=== PATIENT | male | born 1990 | race African-American/Black ===

== ENCOUNTER 2022-05-26 17:12 | Emergency (ER) | payer SELFPAY ==
[~2022-05-26] VITALS: Ht 177.8 cm; Wt 88.5 kg
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
[2022-05-26] MEDS ORDERED: NAPR-1009 PO (18:21)
[2022-05-26] MEDS ORDERED: KETOROLAC TROMETHAMINE INJ 30 MG/ML VIAL ONE (18:22)
[2022-05-26] MEDS ORDERED: TDAP [DIPH/PERTUSSIS/TET] 0.5 ML VIAL IM ONE (18:22)
[2022-05-26] MEDS: TDAP [DIPH/PERTUSSIS/TET] 0.5 ML VIAL IM ONE (18:30)
[2022-05-26] MEDS: KETOROLAC TROMETHAMINE INJ 60 MG/2 ML VIAL IM ONE (18:30)
[2022-05-26] MEDS ORDERED: BACITRACIN ZINC OINT PACKET 1 EA PACKET TP ONE (18:43)
--- NOTE | 2022-05-26 18:50 | NUR ---
wound care: cleaned and applied atbx to right upper extremity. patient tolerated the procedure.
[2022-05-26] MEDS: BACITRACIN ZINC OINT PACKET 1 EA PACKET TP ONE (19:01)
[2022-05-26 19:07] VITALS: BP 135/86
--- NOTE | 2022-05-26 19:09 | NUR ---
Patient discharged to home in stable condition. Written and verbal after care instructions given. Patient verbalizes understanding of instruction.
== END 2022-05-26 19:09 | disposition home or self-care (01) ==
LOC: ER 17:17
DX: S50.01XA Contusion of right elbow, initial encounter (principal); S80.12XA Contusion of left lower leg, initial encounter; S40.811A Abrasion of right upper arm, initial encounter; S80.211A Abrasion, right knee, initial encounter; S09.90XA Unspecified injury of head, initial encounter; V29.49XA Motorcycle driver injured in collision with other motor vehicles in traffic accident, initial encounter; Y93.55 Activity, bike riding; Y92.89 Other specified places as the place of occurrence of the external cause; Y99.8 Other external cause status
CPT/HCPCS: 99284; 96372; 90471; 90715; 73080; J1885